=== PATIENT | female | born 1990 | race American Indian/Alaskan Native ===

== ENCOUNTER 2021-06-12 07:31 | Emergency (ER) | payer BC, MEDICAID ==
[2021-06-12 08:42] VITALS: BP 141/79
[2021-06-12] MEDS ORDERED: dexAMETHasone 20 MG/5 ML VIAL IM ONE (09:51)
--- NOTE | 2021-06-12 09:51 | Emergency Department Report ---
ED Extremity Problem HPI - General Chief complaint: Extremity Problem,Nontraumatic Stated complaint: RIGHT FOOT PAIN Time Seen by Provider: 06/12/21 09:28 Source: patient Mode of arrival: Ambulatory Limitations: No Limitations - History of Present Illness Initial comments: 31-year-old male presents to the ER today with complaints of right ankle and foot pain and swelling. Patient states that his pain started about 2 days ago. He does not recall injuring the foot. He does admit that he has had a history of gout in the past and has had a flareup in that ankle before but he states that over the past 2 days he has been doing a lot of standing and walking. He states that over the past 2 days the pain has got worse. He states that the pain is worse with movement of the ankle and with ambulating. He has not been taking anything [id number] to help with the pain. He reports no associated chest pain, shortness of breath, redness, bruising, or any additional symptoms. MD Complaint: joint swelling, joint paint -: days(s) (2) - Related Data Previous Rx's Medication Instructions Recorded Last Taken Type Acetaminophen/Codeine [Tylenol 1 tab PO Q6H PRN #12 tab 06/12/21 Unknown Rx /Codeine # 3 tab] Indomethacin [Indocin] 25 mg PO Q8H #30 capsule 06/12/21 Unknown Rx Allergies Allergy/AdvReac Type Severity Reaction Status Date / Time No Known Allergies Allergy Verified 06/12/21 08:39 ED Review of Systems ROS: Stated complaint: RIGHT FOOT PAIN Other details as noted in HPI Comment: All other systems reviewed and negative Respiratory: denies: cough, shortness of breath, wheezing Cardiovascular: denies: chest pain, palpitations Musculoskeletal: joint swelling, arthralgia ED Past Medical Hx - Past Medical History Previous Medical History?: No Hx Hypertension: Yes - Surgical History Past Surgical History?: No - Medications Home Medications: Home Medications Medication Instructions Recorded Confirmed Last Taken Type Acetaminophen/Codeine [Tylenol 1 tab PO Q6H PRN #12 tab 06/12/21 Unknown Rx /Codeine # 3 tab] Indomethacin [Indocin] 25 mg PO Q8H #30 capsule 06/12/21 Unknown Rx ED Physical Exam - General Limitations: No Limitations General appearance: alert, in distress (Patient appears uncomfortable secondary to pain) - Head Head exam: Present: atraumatic, normocephalic, normal inspection - Eye Eye exam: Present: normal appearance, PERRL, EOMI Pupils: Present: normal accommodation - Neck Neck exam: Present: normal inspection, full ROM - Respiratory Respiratory exam: Present: normal lung sounds bilaterally. Absent: respiratory distress, wheezes, rales, rhonchi - Cardiovascular Cardiovascular Exam: Present: regular rate, normal rhythm, normal heart sounds - GI/Abdominal GI/Abdominal exam: Present: soft. Absent: distended, tenderness, guarding, rebound - Extremities Exam Extremities exam: Present: full ROM, tenderness (Tenderness to palpation mainly about the lateral aspect of the right ankle.), normal capillary refill, joint swelling (Mild swelling mainly about the lateral aspect of the right ankle), other (No erythema bruising or deformity noted. Dorsalis pedis pulse normal. Cap refill normal.). Absent: calf tenderness - Neurological Exam Neurological exam: Present: alert, oriented X3, CN II-XII intact - Psychiatric Psychiatric exam: Present: normal affect, normal mood - Skin Skin exam: Present: intact ED Course Vital Signs 06/12/21 08:40 Temperature 98.4 F Pulse Rate 91 H Respiratory 16 Rate Blood Pressure 141/79 [Left] O2 Sat by Pulse 95 Oximetry Critical care attestation.: If time is entered above; I have spent that time in minutes in the direct care of this critically ill patient, excluding procedure time. ED Disposition Clinical Impression: Joint pain of ankle and foot, History of gout Disposition: HOME / SELF CARE / HOMELESS Is pt being admited?: No Does the pt Need Aspirin: No Condition: Stable Instructions: Joint Pain, [id number] Additional Instructions: I recommend a take the indomethacin, and the Tylenol threes as prescribed. Try to elevate your leg as often as possible. Follow-up with the primary care doctor listed in your discharge instructions if you do not have 1. Return to the ER if your symptoms worsens in any way Prescriptions: Indomethacin [Indocin] 25 mg PO Q8H #30 capsule Acetaminophen/Codeine [Tylenol /Codeine # 3 tab] 1 tab PO Q6H PRN #12 tab PRN Reason: Pain , Severe (7-10) Referrals: SCARLETT CAI MD [Staff Physician] - 3-5 Days ROSEMARY KILPATRICK MD [Staff Physician] - 3-5 Days Forms: Work/School Release Form(ED) Time of Disposition: 09:52
== END 2021-06-12 10:27 | disposition home or self-care (01) ==
LOC: ED 07:31
DX: M25.579 Pain in unspecified ankle and joints of unspecified foot (principal); M25.571 Pain in right ankle and joints of right foot; M10.9 Gout, unspecified; I10 Essential (primary) hypertension
CPT/HCPCS: 96372; 99282; J1100